=== PATIENT | female | born 1950 | race Caucasian/White ===

== ENCOUNTER 2017-12-27 08:30 | Inpatient (IN) | payer OTHER ==
[~2017-12-27] VITALS: Ht 162.6 cm; Wt 93.0 kg
[2017-12-27] MEDS ORDERED: ZIAC 2.5-6.251 EACH PO (10:18)
[2017-12-27] MEDS ORDERED: ZESTRIL20 MG PO (10:18)
[2017-12-27] MEDS ORDERED: AMARYL PO (10:18)
[2017-12-27] MEDS ORDERED: GABAPENTIN800 MG PO (10:19)
[2017-12-27] MEDS ORDERED: JANUVIA25 MG PO (10:19)
[2017-12-27] MEDS ORDERED: ATIVAN0.5 M1 PO (10:20)
[2017-12-27] MEDS ORDERED: ANAPROX PO (10:20)
[2017-12-27] MEDS ORDERED: EFFEXOR XR75 MG PO (10:20)
[2017-12-27] MEDS ORDERED: ZANTAC300 MG PO (10:21)
[2017-12-27] MEDS ORDERED: PROVENTIL HFA6.7 GM IH (10:22)
[2018-01-03] MEDS ORDERED: GABAPENTIN800 MG PO (09:52)
[2018-01-03] MEDS ORDERED: DOCUSATE SODIU100 MG PO (09:52)
[2018-01-03] MEDS ORDERED: AMOX-CLAV 875-1 EACH PO (09:53)
[2018-01-03] MEDS ORDERED: CLONAZEPAM1 MG PO (09:54)
[2018-01-03] MEDS ORDERED: PERCOCET 5-3251 EACH PO (09:54)
== END 2018-01-03 14:02 | disposition home or self-care (01) | DRG 454 ==
LOC: O/R 08:30 → PED 01-02 05:12 → O/R 01-02 05:12 → SURG 01-02 08:30 → PED 01-02 15:13 → SURG 01-02 17:30 → PED 01-03 14:02
PROVIDERS: Orthopaedic Surgery Orthopaedic Surgery of the Spine
PROC: 0SG0071 Fusion of Lumbar Vertebral Joint with Autologous Tissue Substitute, Posterior Approach, Posterior Column, Open Approach (ICD-10-PCS; 2018-01-02)
PROC: 0ST20ZZ Resection of Lumbar Vertebral Disc, Open Approach (ICD-10-PCS; 2018-01-02)
PROC: 0SG00AJ Fusion of Lumbar Vertebral Joint with Interbody Fusion Device, Posterior Approach, Anterior Column, Open Approach (ICD-10-PCS; 2018-01-02)
PROC: 07DS3ZZ Extraction of Vertebral Bone Marrow, Percutaneous Approach (ICD-10-PCS; 2018-01-02)
PROC: 0SG00A0 Fusion of Lumbar Vertebral Joint with Interbody Fusion Device, Anterior Approach, Anterior Column, Open Approach (ICD-10-PCS; principal; 2018-01-02 17:30)
DX: M48.061 Spinal stenosis, lumbar region without neurogenic claudication (principal); M47.16 Other spondylosis with myelopathy, lumbar region; M51.06 Intervertebral disc disorders with myelopathy, lumbar region; M21.372 Foot drop, left foot

== ENCOUNTER 2020-10-02 11:30 | Inpatient (IN) | payer OTHER ==
[~2020-10-02] VITALS: Ht 162.6 cm; Wt 87.1 kg
[~2020-10-02 11:30] MED LIST: AMARYL PO; AMOX-CLAV 875-1 EACH PO; ANAPROX PO; ATIVAN0.5 M1 PO; CLONAZEPAM1 MG PO; DOCUSATE SODIU100 MG PO; EFFEXOR XR75 MG PO; GABAPENTIN800 MG PO; JANUVIA25 MG PO; PERCOCET 5-3251 EACH PO; PROVENTIL HFA6.7 GM IH; ZANTAC300 MG PO; ZESTRIL20 MG PO; ZIAC 2.5-6.251 EACH PO
[2020-10-07] MEDS ORDERED: GLIMEPIRIDE4 MG (11:54)
[2020-10-07] MEDS ORDERED: MEDROLPACK PO (12:47)
[2020-10-07] MEDS ORDERED: DIAZEPAM5 MG PO (12:48)
[2020-10-07] MEDS ORDERED: COLACE100 MG PO (12:48)
[2020-10-07] MEDS ORDERED: PERCOCET 5-3251 EACH PO (12:48)
== END 2020-10-08 12:06 | disposition home or self-care (01) | DRG 473 ==
LOC: O/R 10-07 05:12 → SURH 10-07 11:30 → PED 10-07 17:44 → SURH 10-07 18:15 → PED 10-07 19:11
PROVIDERS: ADMIT Orthopaedic Surgery Orthopaedic Surgery of the Spine; ATTEND Orthopaedic Surgery Orthopaedic Surgery of the Spine
PROC: XRG20F3 Fusion of 2 or more Cervical Vertebral Joints using Radiolucent Porous Interbody Fusion Device, Open Approach, New Technology Group 3 (ICD-10-PCS; 2020-10-07)
PROC: 07DS3ZZ Extraction of Vertebral Bone Marrow, Percutaneous Approach (ICD-10-PCS; 2020-10-07)
PROC: 0RT30ZZ Resection of Cervical Vertebral Disc, Open Approach (ICD-10-PCS; principal; 2020-10-07 18:15)
DX: M50.021 Cervical disc disorder at C4-C5 level with myelopathy (principal); M48.02 Spinal stenosis, cervical region; I10 Essential (primary) hypertension; E11.9 Type 2 diabetes mellitus without complications

== ENCOUNTER 2023-02-02 08:28 | Inpatient (IN) | payer OTHER ==
[~2023-02-02] VITALS: Ht 152.4 cm; Wt 66.2 kg
[~2023-02-02 08:28] MED LIST changes: +COLACE100 MG PO; +DIAZEPAM5 MG PO; +GLIMEPIRIDE4 MG; +MEDROLPACK PO
[2023-02-02] MEDS ORDERED: ZESTRIL40 M1 PO (12:32)
[2023-02-07] MEDS ORDERED: MEDROLPACK PO (10:20)
[2023-02-07] MEDS ORDERED: PERCOCET 5-3251 EACH PO (10:20)
[2023-02-07] MEDS ORDERED: NEURONTIN800 MG PO (10:21)
[2023-02-07] MEDS ORDERED: AMOX-CLAV 875-1 EACH PO (10:21)
[2023-02-07] MEDS ORDERED: GABAPENTIN100 M2 PO (10:22)
[2023-02-07] MEDS ORDERED: ZOFRAN8 MG PO (10:22)
[2023-02-07] MEDS ORDERED: COLACE100 MG PO (10:23)
[2023-02-08 07:23] LABS: CALCIUM 9.6 mg/dL (8.5-10.1); CREATININE SERUM 0.7 mg/dL (0.55-1.02); GFR 82.49; POTASSIUM 4.87 mEq/L (3.5-5.1)
[2023-02-08 07:28] LABS: HEMATOCRIT 37.8 % (36.0-45.00); HEMOGLOBIN 12.6 g/dL (12.0-15.00); MEAN CORPUSCULAR HEMOGLOBIN 27.5 pg (27.00-32.0); MEAN CORPUSCULAR HGB CONC 33.2 g/dl (32.0-36.0); PLATELET COUNT 196 K/uL (150-450); RED BLOOD COUNT 4.56 M/uL (4.00-6.00); RED CELL DISTRIBUTION WIDTH 14.2 % (11.5-14.5)
[2023-02-08 15:33] LABS: URINE APPEARANCE Clear; URINE BILIRRUBIN Negative (NEGATIVE); URINE BLOOD Trace; URINE COLOR Yellow; URINE LEUKOCYTE Negative; URINE NITRATE Negative; URINE PROTEIN Negative (NEGATIVE); URINE UROBILINOGEN 0.2 E.U./dl
[2023-02-08 15:36] LABS: URINE BACTERIA 218.7 uL (0.0-1933); URINE EPITHELIAL CELLS 49.9 uL (0.0-38.8); URINE WBC 38.6 uL (0.0-23.2)
[2023-02-08 15:37] LABS: URINE GLUCOSE >=1000 MG/DL (NEGATIVE)
== END 2023-02-09 11:13 | disposition other institution (70) | DRG 455 ==
LOC: O/R 02-07 05:20 → SURH 02-07 10:15 → PED 02-07 15:00
PROVIDERS: ADMIT Orthopaedic Surgery Orthopaedic Surgery of the Spine; ATTEND Orthopaedic Surgery Orthopaedic Surgery of the Spine
PROC: 0SG1071 Fusion of 2 or more Lumbar Vertebral Joints with Autologous Tissue Substitute, Posterior Approach, Posterior Column, Open Approach (ICD-10-PCS; 2023-02-07)
PROC: 0SG30A0 Fusion of Lumbosacral Joint with Interbody Fusion Device, Anterior Approach, Anterior Column, Open Approach (ICD-10-PCS; 2023-02-07)
PROC: 0QB30ZZ Excision of Left Pelvic Bone, Open Approach (ICD-10-PCS; 2023-02-07)
PROC: 07DR0ZZ Extraction of Iliac Bone Marrow, Open Approach (ICD-10-PCS; 2023-02-07)
PROC: 4A1104G Monitoring of Peripheral Nervous Electrical Activity, Intraoperative, Open Approach (ICD-10-PCS; 2023-02-07)
PROC: 0SG3071 Fusion of Lumbosacral Joint with Autologous Tissue Substitute, Posterior Approach, Posterior Column, Open Approach (ICD-10-PCS; 2023-02-07)
PROC: 0SG10A0 Fusion of 2 or more Lumbar Vertebral Joints with Interbody Fusion Device, Anterior Approach, Anterior Column, Open Approach (ICD-10-PCS; principal; 2023-02-07 10:15)
DX: M48.062 Spinal stenosis, lumbar region with neurogenic claudication (principal); M41.56 Other secondary scoliosis, lumbar region; M51.36 Other intervertebral disc degeneration, lumbar region